=== PATIENT | male | born 1935 | race Two or more races ===

== ENCOUNTER 2022-01-12 08:07 | Emergency (ER) | payer OTHER ==
[~2022-01-12] VITALS: Ht 175.3 cm; Wt 83.0 kg
[2022-01-12] MEDS ORDERED: LOSARTAN POTASS50 MG PO (08:29)
[2022-01-12] MEDS ORDERED: GLUMETZA500 MG PO (08:30)
== END 2022-01-12 12:06 | disposition home or self-care (01) ==
LOC: ER 08:07
DX: R19.7 Diarrhea, unspecified (principal); H53.122 Transient visual loss, left eye; R42 Dizziness and giddiness; E11.9 Type 2 diabetes mellitus without complications; Z20.822 Contact with and (suspected) exposure to COVID-19